=== PATIENT | female | born 1975 | race Caucasian/White ===

== ENCOUNTER 2017-10-02 15:34 | Emergency (ER) | payer OTHER ==
[~2017-10-02] VITALS: Ht 167.6 cm; Wt 72.7 kg
[2017-10-02] MEDS ORDERED: BUPR300T34 (15:42)
[2017-10-02] MEDS ORDERED: VITA250L PO (15:42)
[2017-10-02] MEDS ORDERED: VITA100066 PO (15:42)
[2017-10-02] MEDS ORDERED: MULT1TAB18 PO (15:42)
[2017-10-02] MEDS ORDERED: CLON1TAB (15:42)
[2017-10-02] MEDS ORDERED: FLUO20CA19 (15:42)
[2017-10-02 17:36] LABS: CALCIUM OXALATE CRYSTALS MODERATE
[2017-10-02 17:38] LABS: BASO # 0.1 10^3/uL (0.0-0.2); BASO % 0.9 % (0.0-1.0); EOS # 0.1 10^3/uL (0.0-0.50); EOS % 1.1 % (0.0-3.0); IMMATURE GRANULOCYTE % 0.2 % (0-0); LYMPH # 1.8 10^3/uL (1.5-4.5); LYMPH % 27.5 % (24.0-44.0); MEAN CORPUSCULAR HEMOGLOBIN 23.7 pg (27.0-33.0); MEAN CORPUSCULAR HGB CONC 30.7 g/dl (32.0-36.5); MEAN CORPUSCULAR VOLUME 77.2 fl (80.0-96.0); MONO # 0.5 10^3/uL (0.0-0.8); MONO % 7.5 % (0.0-5.0); NEUTROPHILS # 4.1 10^3/uL (1.8-7.7); NEUTROPHILS % 62.8 % (36.0-66.0); PLATELET COUNT, AUTOMATED 289 10^3/uL (150-450); RED CELL DISTRIBUTION WIDTH 15.1 % (11.5-14.5); WHITE BLOOD COUNT 6.5 10^3/uL (4.0-10.0)
--- NOTE | 2017-10-02 18:43 | REP ---
REASON FOR EXAM: Cramping. Transvesical and transvaginal imaging was obtained. The uterus measures 9.7 x 5.8 x 7.5 cm. The parenchymal echo pattern is within normal limits. Within the endometrial cavity there is an anechoic structure which is tiny and irregular but with some increased echoes surrounding it suggesting an early decidual reaction. There was no pole identifiable. Doppler shows no evidence of cardiac activity. There is no yolk sac identifiable. The mean gestational sac measurement is consistent with a 5 week 0 day gestational age. Right ovary measures 3 x 2 x 2.8 cm and is within normal limits. Left ovary measures 2.5 x 1.7 x 1.7 cm and is within normal limits. IMPRESSION: Possible early intrauterine gestation versus blighted ovum. Followup is recommended. There is no evidence of an ectopic at this time. Signed by Tremaine Mustafa DO 10/02/2017 07:59 P
[2017-10-02 18:59] VITALS: BP 120/73
== END 2017-10-02 19:00 | disposition home or self-care (01) ==
LOC: M ED 17:23
DX: Z32.01 Encounter for pregnancy test, result positive (principal); Z87.891 Personal history of nicotine dependence; F41.9 Anxiety disorder, unspecified; F32.9 Major depressive disorder, single episode, unspecified; Z79.899 Other long term (current) drug therapy

== ENCOUNTER → 2017-10-06 | Outpatient (CLI) | payer OTHER ==
[~2017-10-06] MED LIST: BUPR300T34; CLON1TAB; FLUO20CA19; MULT1TAB18 PO; VITA100066 PO; VITA250L PO
== END ==
LOC: M LAB 16:02
PROVIDERS: ATTEND Physician Assistant Medical
DX: R10.9 Unspecified abdominal pain (principal)

== ENCOUNTER → 2017-11-21 | Outpatient (CLI) | payer OTHER | LOC: M SMT 13:29 | DX: O09.521 Supervision of elderly multigravida, first trimester (principal) | CPT/HCPCS: 36415 ==

== ENCOUNTER 2017-12-15 09:27 | Emergency (ER) | payer OTHER ==
[2017-12-15] MEDS: ACETAMINOPHEN 325 MG TAB PO (10:05)
[2017-12-15 10:39] LABS: KETONE, URINE AUTO RFX NEGATIVE (NEGATIVE); LEUKOCYTE ESTERASE UR AUTO RFX NEGATIVE (NEGATIVE); NITRITE, URINE AUTO RFX NEGATIVE (NEGATIVE); RBC, URINE AUTO RFX 0 /HPF (0-3); SPECIFIC GRAVITY UR AUTO RFX 1.004 (1.002-1.035); SQUAM EPITHELIAL CELL UR AURFX 0 /HPF (0-6); WBC, URINE AUTO RFX 0 /HPF (0-3)
== END 2017-12-15 11:50 | disposition home or self-care (01) ==
LOC: M ED 09:27
DX: O99.89 Other specified diseases and conditions complicating pregnancy, childbirth and the puerperium (principal); S20.229A Contusion of unspecified back wall of thorax, initial encounter; W10.9XXA Fall (on) (from) unspecified stairs and steps, initial encounter; Y92.099 Unspecified place in other non-institutional residence as the place of occurrence of the external cause; Y93.9 Activity, unspecified; Z98.84 Bariatric surgery status; Z3A.16 16 weeks gestation of pregnancy; Z79.899 Other long term (current) drug therapy
CPT/HCPCS: 76817

== ENCOUNTER → 2017-12-28 | Outpatient (CLI) | payer OTHER | LOC: M RAD 10:34 | DX: Z34.82 Encounter for supervision of other normal pregnancy, second trimester (principal); Z3A.18 18 weeks gestation of pregnancy ==

== ENCOUNTER → 2018-01-23 | Outpatient (CLI) | payer OTHER | LOC: M RAD 10:43 | DX: O44.20 Partial placenta previa NOS or without hemorrhage, unspecified trimester (principal); Z3A.21 21 weeks gestation of pregnancy | CPT/HCPCS: 76817 ==

== ENCOUNTER → 2018-02-01 | Outpatient (REF) | payer OTHER | LOC: M LAB REF 16:38 | DX: J02.8 Acute pharyngitis due to other specified organisms (principal) ==

== ENCOUNTER → 2018-02-20 | Outpatient (CLI) | payer OTHER ==
[2018-02-20 17:18] LABS: HEMATOCRIT 32.7 % (36.0-47.0); HEMOGLOBIN 10.6 g/dl (12.0-15.5); MEAN CORPUSCULAR HGB CONC 32.4 g/dl (32.0-36.5); MEAN CORPUSCULAR VOLUME 89.6 fl (80.0-96.0); PLATELET COUNT, AUTOMATED 215 10^3/uL (150-450); RED BLOOD COUNT 3.65 10^6/uL (4.00-5.40); RED CELL DISTRIBUTION WIDTH 16.1 % (11.5-14.5); WHITE BLOOD COUNT 7.4 10^3/uL (4.0-10.0)
[2018-02-20 18:04] LABS: IRON (FE) 82 UG/DL (50-170)
[2018-02-21 12:56] LABS: VITAMIN B12 LEVEL 272 PG/ML
[2018-02-21 12:57] LABS: FOLATE > 24.0 NG/ML
== END ==
LOC: M LRY 11:41
DX: Z34.82 Encounter for supervision of other normal pregnancy, second trimester (principal)

== ENCOUNTER 2018-03-01 16:20 | Outpatient (CLI) | payer OTHER ==
[2018-03-01] MEDS ORDERED: LR 1,000 ML IV (17:12)
[2018-03-01] MEDS: LACTATED RINGER'S 1000 ML IV (17:53)
[2018-03-01 18:02] LABS: BASO # 0.1 10^3/uL (0.0-0.2); BASO % 0.6 % (0.0-1.0); EOS # 0.1 10^3/uL (0.0-0.50); EOS % 1.5 % (0.0-3.0); HEMATOCRIT 34.2 % (36.0-47.0); HEMOGLOBIN 11.3 g/dl (12.0-15.5); IMMATURE GRANULOCYTE % 0.5 % (0-3.0); LYMPH # 1.7 10^3/uL (1.5-4.5); MEAN CORPUSCULAR HEMOGLOBIN 29.5 pg (27.0-33.0); MEAN CORPUSCULAR VOLUME 89.3 fl (80.0-96.0); MONO # 0.6 10^3/uL (0.0-0.8); MONO % 7.4 % (0.0-5.0); NEUTROPHILS # 5.7 10^3/uL (1.8-7.7); PLATELET COUNT, AUTOMATED 203 10^3/uL (150-450); RED BLOOD COUNT 3.83 10^6/uL (4.00-5.40); RED CELL DISTRIBUTION WIDTH 15.6 % (11.5-14.5); WHITE BLOOD COUNT 8.3 10^3/uL (4.0-10.0)
[2018-03-01 18:25] LABS: ALBUMIN 2.9 GM/DL (3.2-5.2); ALBUMIN/GLOBULIN RATIO 0.78 (1.00-1.93); ALKALINE PHOSPHATASE 101 U/L (45-117); ALT/SGPT 15 U/L (12-78); ANION GAP 8 MEQ/L (8-16); AST/SGOT 14 U/L (7-37); BILIRUBIN,TOTAL 0.5 MG/DL (0.2-1.0); BLOOD UREA NITROGEN 5 MG/DL (7-18); CALCIUM LEVEL 8.3 MG/DL (8.5-10.1); CARBON DIOXIDE LEVEL 24 MEQ/L (21-32); CHLORIDE LEVEL 108 MEQ/L (98-107); CREATININE FOR GFR 0.58 MG/DL (0.55-1.30); GLOMERULAR FILTRATION RATE > 60.0 (>58); GLUCOSE, FASTING 72 MG/DL (70-100); POTASSIUM SERUM 3.9 MEQ/L (3.5-5.1); SODIUM LEVEL 140 MEQ/L (136-145); TOTAL PROTEIN 6.6 GM/DL (6.4-8.2)
== END 2018-03-01 19:10 | disposition home or self-care (01) ==
LOC: M LDO 16:20
DX: O21.9 Vomiting of pregnancy, unspecified (principal); O26.893 Other specified pregnancy related conditions, third trimester; R19.7 Diarrhea, unspecified; Z3A.27 27 weeks gestation of pregnancy; Z98.84 Bariatric surgery status
CPT/HCPCS: G0463

== ENCOUNTER 2018-03-19 12:16 | Emergency (ER) | payer OTHER | END 2018-03-19 15:35 | disposition home or self-care (01) | LOC: M ED 12:16 | DX: J02.8 Acute pharyngitis due to other specified organisms (principal); H72.02 Central perforation of tympanic membrane, left ear; D64.9 Anemia, unspecified; Z79.899 Other long term (current) drug therapy | CPT/HCPCS: 87880 ==

== ENCOUNTER → 2018-05-03 | Outpatient (REF) | payer OTHER | LOC: M LAB REF 17:02 | DX: Z34.83 Encounter for supervision of other normal pregnancy, third trimester (principal) ==

== ENCOUNTER 2018-05-11 14:20 | Outpatient (CLI) | payer OTHER | END 2018-05-11 15:05 | disposition home or self-care (01) | LOC: M LDO 14:20 | DX: O26.893 Other specified pregnancy related conditions, third trimester (principal); Z3A.37 37 weeks gestation of pregnancy | CPT/HCPCS: 76815 ==

== ENCOUNTER 2018-08-04 16:46 | Emergency (ER) | payer OTHER ==
[2018-08-04] MEDS: LIDOCAINE VISCOUS 2% SOLN 15ML UDC TOP (17:17)
== END 2018-08-04 17:21 | disposition home or self-care (01) ==
LOC: M ED 16:46
DX: K04.7 Periapical abscess without sinus (principal); D64.9 Anemia, unspecified; F41.9 Anxiety disorder, unspecified; F33.9 Major depressive disorder, recurrent, unspecified; Z98.890 Other specified postprocedural states; Z79.899 Other long term (current) drug therapy
CPT/HCPCS: 99282

== ENCOUNTER 2018-08-21 11:53 | Emergency (ER) | payer OTHER ==
[2018-08-21] MEDS: methylPREDNISolone INJ 125 MG/2 ML VIAL (J2930) IM (12:52)
[2018-08-21] MEDS: diazePAM 5 MG TAB PO (12:52)
== END 2018-08-21 13:22 | disposition home or self-care (01) ==
LOC: M ED 11:53
DX: M54.32 Sciatica, left side (principal); D50.9 Iron deficiency anemia, unspecified; F33.9 Major depressive disorder, recurrent, unspecified; F41.9 Anxiety disorder, unspecified; Z87.891 Personal history of nicotine dependence; Z79.899 Other long term (current) drug therapy
CPT/HCPCS: J2930

== ENCOUNTER 2018-08-27 11:15 | Emergency (ER) | payer OTHER ==
[2018-08-27] MEDS: ACETAMINOPHEN 325 MG TAB PO (13:09)
[2018-08-27] MEDS: traMADol 50 MG TAB PO (13:11)
== END 2018-08-27 15:06 | disposition home or self-care (01) ==
LOC: M ED 11:15
DX: M54.42 Lumbago with sciatica, left side (principal); Z98.84 Bariatric surgery status; Z87.891 Personal history of nicotine dependence; D64.9 Anemia, unspecified; F41.9 Anxiety disorder, unspecified; F32.9 Major depressive disorder, single episode, unspecified; Z79.899 Other long term (current) drug therapy
CPT/HCPCS: 72110

== ENCOUNTER → 2020-06-02 | Outpatient (REF) | payer OTHER, MEDICAID ==
[~2020-06-02] MED LIST changes: +AMOX500C PO; +BUPR150T3; -BUPR300T34; +BUPR300T92; +CLEO300C2 PO; -CLON1TAB; +CLON1TAB8; +COLA100C5 PO; -FLUO20CA19; +FLUO20CA22; +FOLI1TAB11 PO; +IRON50TA PO; +LIDO2SOL17 SSP; +MAGICMW MT; +MAPA500T2 PO; +MOM30SS PO; +OCUF0.25 AS; +PRED20TA PO; +PRENTAB40 PO; +ULTR50TA8 PO; +VALI5TAB PO; +[UNRECOGNIZED DRUG - CODE] PO
[2020-07-15 11:43] LABS: ESTRADIOL 235.3 PG/ML; FOLLICLE STIMULATING HORMONE 3.4 mIU/mL; LUTEINIZING HORMONE 2.3 mIU/mL
== END ==
LOC: M SFHCWAGY 07:47
PROVIDERS: ATTEND Obstetrics & Gynecology
DX: Z00.00 Encounter for general adult medical examination without abnormal findings (principal)

== ENCOUNTER → 2020-08-06 | Outpatient (REF) | payer OTHER | LOC: M PLALAB 11:35 | PROVIDERS: ATTEND Obstetrics & Gynecology | DX: N92.1 Excessive and frequent menstruation with irregular cycle (principal) ==

== ENCOUNTER → 2020-08-11 | Outpatient (CLI) | payer OTHER ==
--- NOTE | 2020-08-18 15:01 | REP ---
PELVIC ULTRASOUND: 08/11/20. CLINICAL: Irregular uterine bleeding. TECHNIQUE: Transabdominal pelvic ultrasound followed by transvaginal examination for better evaluation of the endometrium and adnexa with color Doppler evaluation of the ovaries. FINDINGS: The bladder is collapsed. Normal anteverted uterus measures 8.3 x 4.1 x 4.8cm. The endometrial complex measures 4.7mm thickness. No discrete uterine or endometrial abnormalities are identified. The bilateral ovaries demonstrate normal vascularity without evidence for torsion. The right ovary measures 3.1 x 2.3 x 2.6cm and includes 2.2cm simple likely physiologic cyst. The left ovary measures 4.0 x2 .6 x 3.1cm and includes 3.5cm simple likely physiologic cyst. No pelvic fluid or adnexal mass lesion. IMPRESSION: 1. Normal uterus. 2. Bilateral ovarian cysts as described above, likely physiologic. MTDD
== END ==
LOC: M WHC 10:22
PROVIDERS: ATTEND Obstetrics & Gynecology
DX: N92.1 Excessive and frequent menstruation with irregular cycle (principal); N83.201 Unspecified ovarian cyst, right side; N83.202 Unspecified ovarian cyst, left side

== ENCOUNTER → 2020-08-31 | Outpatient (CLI) | payer OTHER | LOC: M WHC 09:00 | PROVIDERS: ATTEND Obstetrics & Gynecology | DX: N83.202 Unspecified ovarian cyst, left side (principal) ==

== ENCOUNTER → 2020-09-04 | Outpatient (CLI) | payer OTHER ==
--- NOTE | 2020-09-04 15:59 | REP ---
INDICATION: N83.202 LEFT OVARIAN CYST. COMPARISON: Comparison pelvic sonography August 11, 2020. This was read as showing bilateral ovarian cysts, likely physiologic. 2.2 cm on the right and 3.5 cm on the left. TECHNIQUE: Transabdominal scanning is performed. FINDINGS: Uterine dimensions are normal at 8.6 x 4.2 x 5.0. cm. Endometrial echo is 0.7 cm thick and centrally placed. No free fluid is seen in the cul-de-sac. Visualized bladder ordonez are smooth. Visualized bladder ordonez are smooth. Calculated prevoid bladder volume is 271 cc. The right ovary has dimensions of 3.0 x 1.8 x 2.5 cm. It's Doppler flow is normal with a resistive index of 0.45. There is a 2.5 x 1.7 x 1.2 cm simple cyst in the right ovary. The left ovary dimensions are normal as well at 3.8 x 2.1 x 2.6 cm. It's Doppler flow was normal with resistive index of 0.53. There is a simple cyst visualized in the left ovary measuring 3.2 x 1.4 x 1.5 cm today. This is decreased in size. No free fluid is seen. IMPRESSION: Small simple cyst left ovary 3.2 cm in greatest diameter but decreased in size from the prior study. Simple follicle cyst right ovary. Unremarkable uterus.. <Electronically signed by Flaco Vyas > 09/04/20 [id number]
== END ==
LOC: M WHC 10:55
PROVIDERS: ATTEND Obstetrics & Gynecology
DX: N83.202 Unspecified ovarian cyst, left side (principal); N83.01 Follicular cyst of right ovary

== ENCOUNTER → 2021-01-22 | Outpatient (REF) | payer OTHER ==
[~2021-01-22] MED LIST changes: +BUPR150T12; -BUPR150T3
[2021-01-22 14:15] LABS: FOLLICLE STIMULATING HORMONE 23.5 mIU/mL; LUTEINIZING HORMONE 20.5 mIU/mL; THYROID STIMULATING HORMONE 1.8 uIU/ML (0.358-3.740)
== END ==
LOC: M PLALAB 12:13
PROVIDERS: ATTEND Obstetrics & Gynecology
DX: N92.1 Excessive and frequent menstruation with irregular cycle (principal)

== ENCOUNTER → 2021-02-09 | Outpatient (REF) | payer OTHER | LOC: M PLALAB 13:04 | PROVIDERS: ATTEND Obstetrics & Gynecology | DX: N92.1 Excessive and frequent menstruation with irregular cycle (principal) ==

== ENCOUNTER → 2021-06-22 | Outpatient (CLI) | payer OTHER ==
[~2021-06-22] MED LIST changes: +CLOM50TA9
--- NOTE | 2021-06-22 14:53 | REP ---
INDICATION: PAIN IN RIGHT SHOULDER COMPARISON: None. TECHNIQUE: Internal rotation, external rotation, and Y view. FINDINGS: No acute fracture or dislocation. The acromioclavicular and glenohumeral joints are intact. No periarticular calcifications or degenerative changes are appreciated. Sub acromial space is normal. Surrounding soft tissues are unremarkable. IMPRESSION: Normal right shoulder radiographs. <Electronically signed by Sukhjinder Vera > 06/22/21 [id number]
== END ==
LOC: M PLAIMG 14:16
PROVIDERS: ATTEND Nurse Practitioner Family
DX: M25.511 Pain in right shoulder (principal); R20.2 Paresthesia of skin; Z13.220 Encounter for screening for lipoid disorders; Z98.84 Bariatric surgery status
CPT/HCPCS: 73030; G0463

== ENCOUNTER 2021-06-24 15:40 | Emergency (ER) | payer OTHER ==
[~2021-06-24] VITALS: Ht 170.2 cm; Wt 81.8 kg
[~2021-06-24 15:40] MED LIST changes: -CLOM50TA9
[2021-06-24 15:41] VITALS: BP 131/79
[2021-06-24] MEDS ORDERED: CLOM50TA9 (15:47)
== END 2021-06-24 16:00 | disposition left against medical advice (07) ==
LOC: M ED 15:40
DX: Z53.21 Procedure and treatment not carried out due to patient leaving prior to being seen by health care provider (principal)

== ENCOUNTER → 2021-07-30 | Outpatient (CLI) | payer OTHER ==
[~2021-07-30] MED LIST changes: +CLOM50TA9
--- NOTE | 2021-07-30 16:28 | REP ---
INDICATION: SCREENING MAMMOGRAM. COMPARISON: None TECHNIQUE: Digital screening mammography was carried out bilaterally in the CC and MLO projections using both 2D and 3D modalities. Today's examination is initial screening examination. By history, the patient has no complaints of a palpable breast abnormality or other significant breast complaints. FINDINGS: The breasts are symmetric in size and shape. Dense heterogenous fibroglandular elements are seen bilaterally to such is significant degree that the sensitivity of the mammogram in detecting cancer is decreased. Benign calcifications are seen bilaterally. There is no skin thickening or nipple retraction. In the right breast lower inner quadrant there is a potential asymmetric density. No other suspicious features are seen in either breast. The Volpara volumetric breast density pattern is C. IMPRESSION: BIRADS/ACR category 0 mammogram. Potential asymmetric density in the right breast as described above and for which diagnostic digital DBT spot compression views are recommended in the CC and MLO projections along with diagnostic ultrasonography if indicated. This patient's Tyrer-Cuzick lifetime breast cancer risk assessment score is 19.9%. This mammogram was interpreted with the aid of an FDA-approved computer-aided detection system. The patient states she had a clinical breast exam in June 2021. The patient letter being requested is M0. RECOMMENDATION: As above <Electronically signed by Tremaine Mustafa > 07/30/21 [id number]
== END ==
LOC: M WHC 15:35
PROVIDERS: ATTEND Nurse Practitioner Family
DX: Z12.31 Encounter for screening mammogram for malignant neoplasm of breast (principal); R92.2 Inconclusive mammogram

== ENCOUNTER → 2021-09-02 | Outpatient (CLI) | payer OTHER ==
--- NOTE | 2021-09-02 09:48 | REP ---
INDICATION: RIGHT BREAST ADD VIEWS. COMPARISON: 07/30/2021. TECHNIQUE: Spot-compression tomographic sequences are obtained to evaluate a possible abnormality in the medial right breast. FINDINGS: There is no persistent nodule or architectural distortion at the site of the possible abnormality on the initial screening mammogram of 07/30/2021. Normal fibroglandular tissue is present. IMPRESSION: BIRADS/ACR category 1, negative. No persistent nodule or architectural distortion. This mammogram was interpreted with the aid of an FDA-approved computer-aided detection system. The patient letter being requested is M 1. RECOMMENDATION: Repeat screening mammography recommended 1 year (for women over 40). <Electronically signed by Casimiro Galindo > 09/02/21 [id number]
== END ==
LOC: M WHC 07:34
PROVIDERS: ATTEND Nurse Practitioner Family
DX: R92.8 Other abnormal and inconclusive findings on diagnostic imaging of breast (principal)
CPT/HCPCS: 77065; 81025; G0279; G0463

== ENCOUNTER 2022-12-31 14:09 | Emergency (ER) | payer OTHER ==
[~2022-12-31] VITALS: Ht 170.2 cm; Wt 82.9 kg
[~2022-12-31 14:09] MED LIST changes: +LIDO15SO4 SSP; -LIDO2SOL17 SSP
[2022-12-31] MEDS ORDERED: ONDANSETRON 4MG 2ML VIAL IV ONE (14:45)
[2022-12-31] MEDS ORDERED: MORPHINE 4 MG/ML 1ML VIAL IV ONE ×2 (14:45→16:25)
[2022-12-31 15:13] LABS: BASO # 0.1 10^3/uL (0.0-0.2); BASO % 0.6 % (0.0-1.0); EOS # 0.1 10^3/uL (0.0-0.5); EOS % 1.3 % (0.0-3.0); HEMATOCRIT 43.5 % (36.0-47.0); HEMOGLOBIN 14.4 g/dl (12.0-15.5); MEAN CORPUSCULAR HEMOGLOBIN 30.3 pg (27.0-33.0); MEAN CORPUSCULAR HGB CONC 33.1 g/dl (32.0-36.5); MEAN CORPUSCULAR VOLUME 91.6 fl (80.0-96.0); MONO # 0.7 10^3/uL (0.0-0.8); MONO % 8.7 % (2.0-8.0); NEUTROPHILS # 5.6 10^3/uL (1.5-8.5); NEUTROPHILS % 66.2 % (36.0-66.0); PLATELET COUNT, AUTOMATED 230 10^3/uL (150-450); RED BLOOD COUNT 4.75 10^6/uL (4.00-5.40); WHITE BLOOD COUNT 8.5 10^3/uL (4.0-10.0)
[2022-12-31 15:41] LABS: ALBUMIN 3.9 G/DL (3.2-5.2); ALKALINE PHOSPHATASE 95 U/L (46-116); ALT/SGPT 16 U/L (7.0-40); AST/SGOT 26 U/L (<34); BILIRUBIN,DIRECT 0.3 MG/DL (<0.4); BILIRUBIN,TOTAL 1.4 MG/DL (0.3-1.2); BLOOD UREA NITROGEN 9 MG/DL (9-23); CALCIUM LEVEL 8.8 MG/DL (8.5-10.1); CARBON DIOXIDE LEVEL 26 MMOL/L (20-31); CHLORIDE LEVEL 106 MMOL/L (98-107); CK-MB VALUE MASS < 1.0 NG/ML (<3.6); CPK CREATINE PHOSPHOKINASE 123 U/L (34-145); CREATININE FOR GFR 0.71 MG/DL (0.55-1.30); GLOMERULAR FILTRATION RATE > 60.0 (>58); GLUCOSE, FASTING 77 MG/DL (60-100); HCG, SERUM QUALITATIVE NEGATIVE (NEGATIVE); LIPASE 40 U/L (12-53); MB/CK RELATIVE INDEX 0.81 (< OR =4); POTASSIUM SERUM 4.5 MMOL/L (3.5-5.1); SODIUM LEVEL 138 MMOL/L (136-145); TOTAL PROTEIN 6.8 G/DL (5.7-8.2)
[2022-12-31 15:56] VITALS: BP 117/82
[2022-12-31] MEDS: GASTROGRAFIN SOLUTION 30ML PO SCH ×2 (16:12→16:39)
[2022-12-31] MEDS ORDERED: PANTOPRAZOLE 40MG VIAL IV ONE (16:25)
[2022-12-31] MEDS ORDERED: ISOVUE-370 76% 100ML VIAL As Ordered ONE (17:29)
[2022-12-31] MEDS ORDERED: PROT1TAB2 PO (18:16)
== END 2022-12-31 18:46 | disposition home or self-care (01) ==
LOC: M ED 14:09
DX: R10.13 Epigastric pain (principal); F17.200 Nicotine dependence, unspecified, uncomplicated; Z98.84 Bariatric surgery status; Z79.810 Long term (current) use of selective estrogen receptor modulators (SERMs); Z79.899 Other long term (current) drug therapy
CPT/HCPCS: 74177; 80048; 80076; 82550; 82553; 83605; 83690; 84484; 84703; 85025; 93005; 93041; 96374; 96375; 99284; C9113; J2270; J2405

== ENCOUNTER → 2023-02-07 | Outpatient (CLI) | payer OTHER ==
[~2023-02-07] MED LIST changes: +LIDO15SO SSP; -LIDO15SO4 SSP; +PROT1TAB2 PO
== END ==
LOC: M SOG 08:02
PROVIDERS: ATTEND Physician Assistant
DX: G56.02 Carpal tunnel syndrome, left upper limb (principal); M19.032 Primary osteoarthritis, left wrist

== ENCOUNTER → 2023-03-31 | Outpatient (CLI) | payer OTHER ==
[2023-03-31 13:41] LABS: BASO # 0.1 10^3/uL (0.0-0.2); BASO % 1.1 % (0.0-1.0); EOS # 0.1 10^3/uL (0.0-0.5); HEMOGLOBIN 13.2 g/dl (12.0-15.5); LYMPH # 1.9 10^3/uL (1.5-5.0); LYMPH % 33.2 % (24.0-44.0); MEAN CORPUSCULAR HEMOGLOBIN 29.4 pg (27.0-33.0); MEAN CORPUSCULAR HGB CONC 32.2 g/dl (32.0-36.5); MEAN CORPUSCULAR VOLUME 91.3 fl (80.0-96.0); MONO # 0.6 10^3/uL (0.0-0.8); MONO % 10.8 % (2.0-8.0); NEUTROPHILS # 2.9 10^3/uL (1.5-8.5); NEUTROPHILS % 52.7 % (36.0-66.0); PLATELET COUNT, AUTOMATED 222 10^3/uL (150-450); RED BLOOD COUNT 4.49 10^6/uL (4.00-5.40); WHITE BLOOD COUNT 5.6 10^3/uL (4.0-10.0)
[2023-03-31 13:59] LABS: HEMOGLOBIN A1c 5.1 % (4.0-6.0)
[2023-03-31 14:08] LABS: ALBUMIN 3.9 G/DL (3.2-5.2); ALKALINE PHOSPHATASE 111 U/L (46-116); ALT/SGPT 19 U/L (7.0-40); AST/SGOT 19 U/L (<34); BILIRUBIN,TOTAL 1.7 MG/DL (0.3-1.2); BLOOD UREA NITROGEN 11 MG/DL (9-23); CARBON DIOXIDE LEVEL 29 MMOL/L (20-31); CHLORIDE LEVEL 104 MMOL/L (98-107); CREATININE FOR GFR 0.75 MG/DL (0.55-1.30); GLOMERULAR FILTRATION RATE > 60.0 (>58); GLUCOSE, FASTING 81 MG/DL (60-100); POTASSIUM SERUM 4.6 MMOL/L (3.5-5.1); SODIUM LEVEL 138 MMOL/L (136-145); TOTAL PROTEIN 6.6 G/DL (5.7-8.2)
[2023-03-31 14:13] LABS: FOLLICLE STIMULATING HORMONE 16.3 mIU/ML; FREE T4 0.95 NG/DL (0.89-1.76)
[2023-03-31 14:14] LABS: LUTEINIZING HORMONE 31.9 mIU/ML; THYROID STIMULATING HORMONE 1.058 uIU/ML (0.55-4.78)
[2023-03-31 14:17] LABS: TOTAL 25(OH) VITAMIN D 18.7 NG/ML (20.0-100.0)
== END ==
LOC: M PLALAB 12:07
PROVIDERS: ATTEND Physician Assistant
DX: R53.83 Other fatigue (principal); Z80.3 Family history of malignant neoplasm of breast; E66.9 Obesity, unspecified; R42 Dizziness and giddiness; F41.9 Anxiety disorder, unspecified
CPT/HCPCS: 36415; 80053; 82306; 83001; 83002; 83036; 84439; 84443; 85025; G0463

== ENCOUNTER → 2023-06-15 | Outpatient (CLI) | payer OTHER | LOC: M SOG 09:00 | PROVIDERS: ATTEND Orthopaedic Surgery | DX: M54.50 Low back pain, unspecified (principal); Z53.9 Procedure and treatment not carried out, unspecified reason ==

== ENCOUNTER → 2023-08-29 | Outpatient (RCR) | payer OTHER | LOC: M PT 13:05 | PROVIDERS: ATTEND Orthopaedic Surgery | DX: M47.27 Other spondylosis with radiculopathy, lumbosacral region (principal) ==

== ENCOUNTER → 2023-09-28 | Outpatient (RCR) | payer OTHER | LOC: M PT 10:45 | PROVIDERS: ATTEND Orthopaedic Surgery | DX: M54.59 Other low back pain (principal) ==

== ENCOUNTER → 2024-01-31 | Outpatient (CLI) | payer OTHER, MEDICAID ==
[~2024-01-31] MED LIST changes: -LIDO15SO SSP; +LIDO15SO8 SSP
[2024-01-31 15:23] LABS: BASO # 0.1 10^3/uL (0.0-0.2); BASO % 0.8 % (0.0-1.0); EOS # 0.1 10^3/uL (0.0-0.5); EOS % 1.3 % (0.0-3.0); HEMATOCRIT 40.7 % (36.0-47.0); HEMOGLOBIN 13.2 g/dl (12.0-15.5); LYMPH # 2.1 10^3/uL (1.5-5.0); LYMPH % 33.4 % (24.0-44.0); MEAN CORPUSCULAR HEMOGLOBIN 28.7 pg (27.0-33.0); MEAN CORPUSCULAR HGB CONC 32.4 g/dl (32.0-36.5); MEAN CORPUSCULAR VOLUME 88.5 fl (80.0-96.0); MONO # 0.6 10^3/uL (0.0-0.8); MONO % 9.5 % (2.0-8.0); NEUTROPHILS # 3.5 10^3/uL (1.5-8.5); NEUTROPHILS % 54.7 % (36.0-66.0); PLATELET COUNT, AUTOMATED 298 10^3/uL (150-450); WHITE BLOOD COUNT 6.3 10^3/uL (4.0-10.0)
[2024-01-31 15:43] LABS: HEMOGLOBIN A1c 5.2 % (4.0-6.0)
[2024-01-31 15:50] LABS: ALBUMIN 3.8 G/DL (3.2-5.2); ALKALINE PHOSPHATASE 131 U/L (46-116); ALT/SGPT 11 U/L (7.0-40); AST/SGOT 14 U/L (<34); BILIRUBIN,TOTAL 0.8 MG/DL (0.3-1.2); BLOOD UREA NITROGEN 7 MG/DL (9-23); CALCIUM LEVEL 9.6 MG/DL (8.5-10.1); CARBON DIOXIDE LEVEL 27 MMOL/L (20-31); CHLORIDE LEVEL 110 MMOL/L (98-107); CHOLESTEROL LEVEL 215 MG/DL (<200); CHOLESTEROL RISK RATIO 4.93 (<5); CREATININE FOR GFR 0.66 MG/DL (0.55-1.30); GLOMERULAR FILTRATION RATE > 60.0 (>58); GLUCOSE, FASTING 96 MG/DL (60-100); HDL CHOLESTEROL 43.6 MG/DL (>40); LDL CHOLESTEROL 148.4 MG/DL (<100); NON-HDL-C 171.4 MG/DL; POTASSIUM SERUM 4.3 MMOL/L (3.5-5.1); SODIUM LEVEL 138 MMOL/L (136-145); TOTAL PROTEIN 6.8 G/DL (5.7-8.2); TRIGLYCERIDES LEVEL 115 MG/DL (<150)
[2024-01-31 15:53] LABS: FREE T4 0.94 NG/DL (0.89-1.76); THYROID STIMULATING HORMONE 1.354 uIU/ML (0.55-4.78)
== END ==
LOC: M PLALAB 14:06
PROVIDERS: ATTEND Physician Assistant
DX: Z98.84 Bariatric surgery status (principal); F33.1 Major depressive disorder, recurrent, moderate; E66.9 Obesity, unspecified; F41.9 Anxiety disorder, unspecified

== ENCOUNTER → 2024-05-15 | Outpatient (REF) | payer OTHER, MEDICAID ==
[~2024-05-15] MED LIST changes: +AMOX875T2 PO; +AMPH1CAP16 PO; +BUPR-597; -BUPR300T92; +FLUC150T9 PO; +FLUO-365; -FLUO20CA22; +MIDOTAB PO; +MULT1TAB16 PO
== END ==
LOC: M LAB REF 20:55
PROVIDERS: ATTEND Physician Assistant Medical
DX: B34.9 Viral infection, unspecified (principal)

== ENCOUNTER 2024-05-17 13:01 | Emergency (ER) | payer OTHER, MEDICAID ==
[~2024-05-17] VITALS: Ht 170.2 cm; Wt 80.9 kg
[~2024-05-17 13:01] MED LIST changes: -AMOX875T2 PO; -AMPH1CAP16 PO; -FLUC150T9 PO; -MIDOTAB PO; -MULT1TAB16 PO
[2024-05-17 16:02] LABS: BASO # 0.1 10^3/uL (0.0-0.2); BASO % 0.6 % (0.0-1.0); EOS # 0.1 10^3/uL (0.0-0.5); HEMATOCRIT 41.7 % (36.0-47.0); HEMOGLOBIN 13.8 g/dl (12.0-15.5); LYMPH # 2.3 10^3/uL (1.5-5.0); LYMPH % 29.1 % (24.0-44.0); MEAN CORPUSCULAR HEMOGLOBIN 29.2 pg (27.0-33.0); MEAN CORPUSCULAR HGB CONC 33.1 g/dl (32.0-36.5); MEAN CORPUSCULAR VOLUME 88.3 fl (80.0-96.0); MONO # 0.5 10^3/uL (0.0-0.8); MONO % 6.2 % (2.0-8.0); NEUTROPHILS % 62.8 % (36.0-66.0); PLATELET COUNT, AUTOMATED 253 10^3/uL (150-450); RED BLOOD COUNT 4.72 10^6/uL (4.00-5.40); WHITE BLOOD COUNT 7.9 10^3/uL (4.0-10.0)
[2024-05-17 16:25] LABS: BLOOD UREA NITROGEN 6 MG/DL (9-23); CALCIUM LEVEL 9.8 MG/DL (8.5-10.1); CARBON DIOXIDE LEVEL 28 MMOL/L (20-31); CHLORIDE LEVEL 107 MMOL/L (98-107); CREATININE FOR GFR 0.67 MG/DL (0.55-1.30); GLOMERULAR FILTRATION RATE > 60.0 (>58); GLUCOSE, FASTING 90 MG/DL (60-100); POTASSIUM SERUM 4.3 MMOL/L (3.5-5.1); SODIUM LEVEL 140 MMOL/L (136-145)
[2024-05-17] MEDS ORDERED: dexAMETHasone 20MG/5ML VIAL As Ordered ONE (16:48)
[2024-05-17] MEDS: NS 1,000 ML IV ONE (16:49)
[2024-05-17] MEDS: dexAMETHasone 20MG/5ML VIAL IV ONE (16:49)
[2024-05-17] MEDS: METOCLOPRAMIDE INJ 10MG/2ML VIAL IV ONE (16:49)
[2024-05-17 16:55] LABS: ERYTHROCYTE SEDIMENTATION RATE 21 mm/hr (0-20)
[2024-05-17 17:03] LABS: C REACTIVE PROTEIN QUANTITATIV < 0.40 MG/DL (<1.0)
[2024-05-17] MEDS ORDERED: FLUC150T9 PO (18:17)
[2024-05-17] MEDS ORDERED: AMPH1CAP16 PO (18:17)
[2024-05-17] MEDS ORDERED: MULT1TAB16 PO (18:17)
[2024-05-17] MEDS ORDERED: MIDOTAB PO (18:17)
[2024-05-17] MEDS ORDERED: AMOX875T2 PO (18:17)
[2024-05-17] MEDS ORDERED: HOME MED LIST COMPLETE! XX SCH (18:20)
[2024-05-17 19:38] VITALS: BP 117/79; TEMP 97.4; O2SAT 100
== END 2024-05-17 19:39 | disposition home or self-care (01) ==
LOC: M ED 13:01
DX: R51.9 Headache, unspecified (principal); M50.122 Cervical disc disorder at C5-C6 level with radiculopathy; M50.123 Cervical disc disorder at C6-C7 level with radiculopathy; D64.9 Anemia, unspecified; Z79.1 Long term (current) use of non-steroidal anti-inflammatories (NSAID); Z79.899 Other long term (current) drug therapy
CPT/HCPCS: 70450; 71045; 72125; 80048; 85025; 85652; 86140; 87486; 87581; 87633; 87798; 96361; 96374; 99284; J1100; J2765

== ENCOUNTER → 2024-08-07 | Outpatient (CLI) | payer OTHER, MEDICAID ==
[~2024-08-07] MED LIST changes: +AMOX875T2 PO; +AMPH1CAP16 PO; +FLUC150T9 PO; +MIDOTAB PO; +MULT1TAB16 PO
== END ==
LOC: M PLALAB 14:16
PROVIDERS: ATTEND Physician Assistant
DX: N91.2 Amenorrhea, unspecified (principal)

== ENCOUNTER → 2024-08-22 | Outpatient (REF) | payer OTHER, MEDICAID | LOC: M SFHCPLAZ 14:14 | PROVIDERS: ATTEND Physician Assistant | DX: N91.2 Amenorrhea, unspecified (principal) ==

== ENCOUNTER 2025-02-07 09:32 | Emergency (ER) | payer MEDICAID, OTHER ==
[~2025-02-07] VITALS: Ht 170.2 cm; Wt 74.0 kg
[2025-02-07] MEDS ORDERED: LIDO3CRE14 TOP (11:31)
[2025-02-07] MEDS ORDERED: BACT800T5 PO (11:31)
[2025-02-07] MEDS: BACTRIM 160MG/800MG DS TAB PO ONE (11:33)
[2025-02-07] MEDS: PERCOCET 5MG/325MG TAB PO ONE (11:34)
[2025-02-07 11:38] VITALS: BP 128/79; TEMP 97.9; O2SAT 100
[2025-02-07] MEDS ORDERED: PERC5TAB12 PO (11:38)
== END 2025-02-07 11:46 | disposition home or self-care (01) ==
LOC: M ED 09:32
DX: N76.4 Abscess of vulva (principal); F41.9 Anxiety disorder, unspecified; F32.A Depression, unspecified; D64.9 Anemia, unspecified; F17.200 Nicotine dependence, unspecified, uncomplicated; Z79.2 Long term (current) use of antibiotics; Z79.899 Other long term (current) drug therapy

== ENCOUNTER 2025-02-10 09:50 | Emergency (ER) | payer OTHER ==
[~2025-02-10] VITALS: Ht 170.2 cm; Wt 72.5 kg
[~2025-02-10 09:50] MED LIST changes: +BACT800T5 PO; +LIDO3CRE14 TOP; +PERC5TAB12 PO
[2025-02-10] MEDS ORDERED: BACT800T5 PO (14:28)
[2025-02-10 14:46] VITALS: BP 114/70; TEMP 97.6; O2SAT 99
== END 2025-02-10 14:47 | disposition home or self-care (01) ==
LOC: M ED 09:50
DX: N76.4 Abscess of vulva (principal); D64.9 Anemia, unspecified; F41.9 Anxiety disorder, unspecified; F32.A Depression, unspecified; Z98.84 Bariatric surgery status; Z79.899 Other long term (current) drug therapy; Z79.2 Long term (current) use of antibiotics

== ENCOUNTER → 2025-05-22 | Outpatient (REF) | payer OTHER ==
[~2025-05-22] MED LIST changes: -BUPR-597; +BUPR-766; +CLOM50TA31; -CLOM50TA9
[2025-05-22 17:43] LABS: APPEARANCE, URINE CLEAR (CLEAR); BACTERIA, URINE AUTO NEGATIVE (NEGATIVE); BILIRUBIN, URINE AUTO NEGATIVE (NEGATIVE); BLOOD, URINE BLOOD 1+ (NEGATIVE); GLUCOSE, URINE (UA) AUTO NEGATIVE (NEGATIVE); KETONE, URINE AUTO NEGATIVE (NEGATIVE); LEUKOCYTE ESTERASE, URINE AUTO NEGATIVE (NEGATIVE); NITRITE, URINE AUTO POSITIVE (NEGATIVE); PROTEIN, URINE AUTO NEGATIVE (NEGATIVE); RBC, URINE AUTO 0 /HPF (0-3); SPECIFIC GRAVITY URINE AUTO 1.004 (1.002-1.035); SQUAMOUS EPITHELIAL CELL UR AU 1 /HPF (0-6); UROBILINOGEN, URINE AUTO 4.0 mg/dL (0.0-2.0); WBC, URINE AUTO 2 /HPF (0-3)
== END ==
LOC: M LAB REF 17:06
PROVIDERS: ATTEND Physician Assistant
DX: N39.0 Urinary tract infection, site not specified (principal)